=== PATIENT | female | born 1985 | race Caucasian/White ===

== ENCOUNTER 2017-11-19 13:13 | Inpatient (IN) | payer BC ==
[2017-11-19 15:16] VITALS: BMI 29.9
--- NOTE | 2017-11-19 20:54 | HP ---
"Admission [facility] Chief Complaint: Here for rehab. Allergies/Adverse Reactions: Allergies Allergy/AdvReac Type Severity Reaction Status Date / Time No Known Allergies Allergy Verified 11/19/17 15:35 History of Present Illness: Hx Heavy intranasal cocaine use since age 24. Mild marijuana use since age 19. Intermittent alcohol use from age 21 until 1 week ago. Longest period of sobriety is about 2 months. Denies hx of seizures or blackouts. Has a (+) PPD from 2 years ago. Thinks had medicine, as a child, for 6 months. Denies significant PMH. Search Terms: Deneen Rafi, 1985 Search Date: 11/19/2017 08:46:54 PM The Drug Utilization Report below displays all of the controlled substance prescriptions, if any, that your patient has filled in the last twelve months. The information displayed on this report is compiled from pharmacy submissions to the Department, and accurately reflects the information as submitted by the pharmacies. This report was requested by: Shantelle Corral | Reference #: [id number] There are no results for the search terms that you entered. Exam Limitations: No Limitations - Ebola screening Have you traveled outside of the country in the last 21 days: No Have you had contact with anyone from an Ebola affected area: No Have you been sick,other than usual withdrawal symptoms: No Do you have a fever: No - Review of Systems Constitutional: Diaphoresis, Changes in sleep (Difficulty falling asleep) EENT: reports: Blurred Vision (Wears contact lenses) Respiratory: reports: No Symptoms reported Cardiac: reports: No Symptoms Reported GI: reports: No Symptoms Reported : reports: No Symptoms Reported Musculoskeletal: reports: No Symptoms Reported Integumentary: reports: Bruising (arms and legs w/ scattered bruising), Lesions (scrape on (L) hand w/ a scab.) Neuro: reports: Tremors (mild tremors) Endocrine: reports: No Symptoms Reported Hematology: reports: No Symptoms Reported Psychiatric: reports: Judgement Intact, Mood/Affect Appropiate, Orientated x3, Anxious Patient History - PPD History Previous Implant?: Yes Documented Results: Positive w/o proof Implanted On Prior R Admission?: No PPD to be Administered?: No - Reproductive History Patient is a Female of Child Bearing Age (11 -55 yrs old): Yes Last Menstrual Period: 11/01/17 Patient : No - Smoking Cessation Smoking history: Current some day smoker Have you smoked in the past 12 months: Yes Aproximately how many cigarettes per day: 2 Hx Chewing Tobacco Use: No Initiated information on smoking cessation: Yes 'Breaking Loose' booklet given: 11/19/17 - Substance & Tx. History Hx Alcohol Use: Yes Hx Substance Use: Yes Substance Use Type: Cocaine, Marijuana Hx Substance Use Treatment: No - Substances Abused Cocaine Route: Inhalation Frequency: Daily Amount used: $200-500 Age of first use: 24 Date of Last Use: 11/19/17 (3 am) Marijuana/Hashish Route: Smoking Frequency: 1-2 times per week Amount used: 1 joint Age of first use: 19 Date of Last Use: 11/17/17 Alcohol Route: Oral Frequency: 1-2 times per week Amount used: 4-5 shots Age of first use: 21 Date of Last Use: 11/05/17 Admission Physical Exam [facility] - Vital Signs Vital Signs: Vital Signs - 24 hr 11/19/17 11/19/17 15:10 15:12 Temperature 97.4 F L 97.4 F L Pulse Rate 68 73 Respiratory 20 20 Rate Blood Pressure 149/63 124/78 - Physical General Appearance: Yes: No Apparent Distress, Appropriately Dressed, Anxious HEENTM: Yes: EOMI, Hearing grossly Normal, FELIPE Respiratory: Yes: Chest Non-Tender, Lungs Clear, Normal Breath Sounds Neck: Yes: No masses,lesions,Nodules, Supple Breast: Yes: Breast Exam Deferred Cardiology: Yes: Regular Rhythm, Regular Rate, S1, S2 Abdominal: Yes: Normal Bowel Sounds, Non Tender, Soft Genitourinary: Yes: Within Normal Limits Back: Yes: Normal Inspection Musculoskeletal: Yes: full range of Motion, Gait Steady Extremities: Yes: Normal Capillary Refill, Normal Range of Motion, Non-Tender Neurological: Yes: b2b sales representative II-XII NML intact, Fully Oriented, Alert, Motor Strength 5/5, Normal Mood/Affect Integumentary: Yes: Normal Color, Dry, Warm, Other (Scattered bruising(mitzy/and blue) on upper (L) arm. Superficial 6 mm abrasion/scratch (L) hand w/ surrounding erythema. No drainage.) Lymphatic: Yes: Within Normal Limits - Diagnostic (1) Alcohol dependence in remission Current Visit: Yes Status: Acute (2) Cannabis dependence, uncomplicated Current Visit: Yes Status: Chronic (3) Cocaine dependence, uncomplicated Current Visit: Yes Status: Chronic (4) Abrasion hand Current Visit: Yes Status: Acute Qualifiers: Encounter type: subsequent encounter Laterality: left Qualified Code(s): S60.512D - Abrasion of left hand, subsequent encounter Cleared for Admission S - Detox or Rehab Claeared for Rehab Admission: Yes [facility] Breath Alcohol Content Breath Alcohol Content: 0 Urine Pregancy Test - Result Urine Test Results: Negative- NO Line Present Urine Drug Screen - Results Drug Screen Negative: No Urine Drug Screen Results: ARLYN-Cocaine, MTD-Methadone, TCA-Tricyclic Antidepress Inpatient Rehab Admission - Initial Determination Are CD services needed?: Yes Free of communicable disease: Yes Not in need of hospitalization: Yes - Rehab Admission Criteria Previous failed treatment: Yes Poor recovery environment: Yes Comorbidities: No Lacks judgement: No Patient is meeting Inpatient Rehab admission criteria:: Yes"
[2017-11-19] MEDS ORDERED: LOPERAMIDE HCL 2 MG CAPSULE PO PRN (21:22)
[2017-11-19] MEDS ORDERED: P-EPHED 60MG/TRIPROLIDI 2.5MG TABLET PO PRN (21:22)
[2017-11-19] MEDS ORDERED: MAG HYDROX/AL HYDROX/SIMETH 30 ML UNIT-DOSE CUP PO PRN (21:22)
[2017-11-19] MEDS ORDERED: IBUPROFEN 400 MG TABLET (FP) PO PRN (21:22)
[2017-11-19] MEDS ORDERED: ACETAMINOPHEN 325 MG TABLET (FP) PO PRN (21:22)
[2017-11-19] MEDS ORDERED: MENTHOL/PHENOL 1 EACH UD MM PRN (21:22)
[2017-11-19] MEDS ORDERED: MAGNESIUM CITRATE 300 ML BOTTLE PO PRN (21:22)
[2017-11-19] MEDS ORDERED: guaiFENesin/D-METHORPHAN HB 10 ML UNIT-DOSE CUPS PO PRN (21:22)
[2017-11-19] MEDS ORDERED: MAGNESIUM HYDROX 2400MG/30ML ORAL SUSPENSION 30 ML CUP PO PRN (21:22)
[2017-11-19] MEDS: hydrOXYzine PAMOATE 50 MG CAPSULE (FP) PO PRN (22:41)
[2017-11-19] MEDS: MELATONIN 5 MG TABLETS PO PRN (22:41)
[2017-11-19] MEDS: THIAMINE HCL 100 MG TABLET (FP) PO SCH (22:41)
[2017-11-19 23:32] LABS: URINE APPEARANCE TURBID; URINE BILIRUBIN NEGATIVE (<2.0 mg/dL); URINE COLOR YELLOW; URINE GLUCOSE (UA) NEGATIVE (NEGATIVE); URINE KETONE NEGATIVE (NEGATIVE); URINE LEUK ESTERASE NEGATIVE (NEGATIVE); URINE NITRITE NEGATIVE (NEGATIVE); URINE PROTEIN NEGATIVE (NEGATIVE); URINE UROBILINOGEN NEGATIVE mg/dL (0.2-1.0)
[2017-11-20] MEDS: PRENATAL VITAMINS W/ FOLIC ACID TABLET (FP) PO SCH (09:18)
[2017-11-20] MEDS: NICOTINE POLACRILEX 2 MG GUM BC PRN (09:18)
[2017-11-20 11:21] LABS: HEMATOCRIT 42.3 % (32.4-45.2); HEMOGLOBIN 13.7 GM/dL (10.7-15.3); MCH 26.7 pg (25.7-33.7); MCHC 32.4 g/dl (32.0-36.0); MEAN CELL VOLUME 82.5 fl (80-96); PLATELET COUNT 233 K/MM3 (134-434); RBC 5.13 M/mm3 (3.60-5.2); RDW 15.6 % (11.6-15.6); WHITE BLOOD COUNT 7.4 K/mm3 (4.0-10.0)
[2017-11-20 11:42] LABS: ALBUMIN 3.5 g/dl (3.4-5.0); ANION GAP 8 MMOL/L (8-16); BLOOD UREA NITROGEN 10 mg/dL (7-18); CALCIUM 8.8 mg/dL (8.5-10.1); CHLORIDE 108 mmol/L (98-107); CO2 26 mmol/L (21-32); CREATININE 0.8 mg/dL (0.55-1.02); GLUCOSE,RANDOM 60 mg/dL (74-106); POTASSIUM 4.2 mmol/L (3.5-5.1); SGOT/AST 14 U/L (15-37); SGPT/ALT 30 U/L (12-78); SODIUM 142 mmol/L (136-145)
[2017-11-20 11:44] LABS: ALK PHOS 55 U/L (45-117); BILIRUBIN,TOTAL 0.5 mg/dL (0.2-1.0); TOT PROT 6.7 g/dl (6.4-8.2)
[2017-11-20] MEDS: hydrOXYzine PAMOATE 50 MG CAPSULE (FP) PO PRN (21:37)
[2017-11-20] MEDS: THIAMINE HCL 100 MG TABLET (FP) PO SCH (21:37)
[2017-11-20] MEDS: MELATONIN 5 MG TABLETS PO PRN (21:38)
[2017-11-21] MEDS: PRENATAL VITAMINS W/ FOLIC ACID TABLET (FP) PO SCH (09:32)
[2017-11-21] MEDS: NICOTINE POLACRILEX 2 MG GUM BC PRN (09:32)
[2017-11-21] MEDS: THIAMINE HCL 100 MG TABLET (FP) PO SCH (21:14)
[2017-11-21] MEDS: hydrOXYzine PAMOATE 50 MG CAPSULE (FP) PO PRN (21:15)
[2017-11-22] MEDS: PRENATAL VITAMINS W/ FOLIC ACID TABLET (FP) PO SCH (09:32)
--- NOTE | 2017-11-22 14:21 | EKG ---
Test Reason : Blood Pressure : / mmHG Vent. Rate : 070 BPM Atrial Rate : 070 BPM P-R Int : 154 ms QRS Dur : 088 ms QT Int : 418 ms P-R-T Axes : 064 077 073 degrees QTc Int : 451 ms NORMAL SINUS RHYTHM POSSIBLE LEFT ATRIAL ENLARGEMENT BORDERLINE ECG NO PREVIOUS ECGS AVAILABLE Confirmed by YANET MENDOZA MD ([id number]) on 11/22/2017 2:21:30 PM Referred By: Melida Gómez Confirmed By:YANET MENDOZA MD
[2017-11-22] MEDS: hydrOXYzine PAMOATE 50 MG CAPSULE (FP) PO PRN (18:59)
[2017-11-22] MEDS: NICOTINE POLACRILEX 2 MG GUM BC PRN (19:00)
[2017-11-22] MEDS: THIAMINE HCL 100 MG TABLET (FP) PO SCH (21:30)
[2017-11-22] MEDS: MELATONIN 5 MG TABLETS PO PRN (21:30)
[2017-11-23] MEDS: PRENATAL VITAMINS W/ FOLIC ACID TABLET (FP) PO SCH (09:43)
[2017-11-23] MEDS: hydrOXYzine PAMOATE 50 MG CAPSULE (FP) PO PRN ×3 (09:44→23:48)
[2017-11-23] MEDS: NICOTINE POLACRILEX 2 MG GUM BC PRN (09:44)
--- NOTE | 2017-11-23 13:18 | PN ---
[facility] Progress Note Note: Vital Signs Temperature 98.0 F 11/23/17 06:45 Pulse Rate 66 11/23/17 06:45 Respiratory Rate 18 11/23/17 06:45 Blood Pressure 116/76 11/23/17 06:45 O2 Sat by Pulse Oximetry (%) Laboratory Last Values WBC 7.4 K/mm3 (4.0-10.0) 11/20/17 09:30 RBC 5.13 M/mm3 (3.60-5.2) 11/20/17 09:30 Hgb 13.7 GM/dL (10.7-15.3) 11/20/17 09:30 Hct 42.3 % (32.4-45.2) 11/20/17 09:30 MCV 82.5 fl (80-96) 11/20/17 09:30 MCH 26.7 pg (25.7-33.7) 11/20/17 09:30 MCHC 32.4 g/dl (32.0-36.0) 11/20/17 09:30 RDW 15.6 % (11.6-15.6) 11/20/17 09:30 Plt Count 233 K/MM3 (134-434) 11/20/17 09:30 MPV 9.0 fl (7.5-11.1) 11/20/17 09:30 Sodium 142 mmol/L (136-145) 11/20/17 09:30 Potassium 4.2 mmol/L (3.5-5.1) 11/20/17 09:30 Chloride 108 mmol/L (98-107) H 11/20/17 09:30 Carbon Dioxide 26 mmol/L (21-32) 11/20/17 09:30 Anion Gap 8 MMOL/L (8-16) 11/20/17 09:30 BUN 10 mg/dL (7-18) 11/20/17 09:30 Creatinine 0.8 mg/dL (0.55-1.02) 11/20/17 09:30 Creat Clearance w eGFR > 60 (>60) 11/20/17 09:30 Random Glucose 60 mg/dL (74-106) L 11/20/17 09:30 Calcium 8.8 mg/dL (8.5-10.1) 11/20/17 09:30 Total Bilirubin 0.5 mg/dL (0.2-1.0) 11/20/17 09:30 AST 14 U/L (15-37) L 11/20/17 09:30 ALT 30 U/L (12-78) 11/20/17 09:30 Alkaline Phosphatase 55 U/L (45-117) 11/20/17 09:30 Total Protein 6.7 g/dl (6.4-8.2) 11/20/17 09:30 Albumin 3.5 g/dl (3.4-5.0) 11/20/17 09:30 Urine Color Yellow 11/19/17 22:13 Urine Appearance Turbid 11/19/17 22:13 Urine pH 5.0 (5.0-8.0) 11/19/17 22:13 Ur Specific [place] 1.028 (1.001-1.035) 11/19/17 22:13 Urine Protein Negative (NEGATIVE) 11/19/17 22:13 Urine Glucose (UA) Negative (NEGATIVE) 11/19/17 22:13 Urine Ketones Negative (NEGATIVE) 11/19/17 22:13 Urine Blood Negative (NEGATIVE) 11/19/17 22:13 Urine Nitrite Negative (NEGATIVE) 11/19/17 22:13 Urine Bilirubin Negative (<2.0 mg/dL) 11/19/17 22:13 Urine Urobilinogen Negative mg/dL (0.2-1.0) 11/19/17 22:13 Ur Leukocyte Esterase Negative (NEGATIVE) 11/19/17 22:13 RPR Titer Nonreactive (NONREACTIVE) 11/20/17 09:30 Hep C Ab Diagnostic <0.1 s/co ratio (0.0-0.9) 11/20/17 09:30 Hepatitis C RNA No Result Required. 11/20/17 09:30 HCV RNA PCR w/Genot Rflx No Result Required. 11/20/17 09:30 Liver Fibrosis Interp (.) 11/20/17 09:30 chest x-ray reviewed no acute pathology or pulmonary disease labs reviewed continue to monitor
--- NOTE | 2017-11-23 18:24 | HP ---
Psychiatrist Admission - Data Date of interview: 11/23/17 Admission source: [facility] Identifying data: Patient is a 31 year old single female, without children, domiciled, and employed. This is patient's first admission to rehab at [facility]. Pt. admitted to for cocaine dependence. Medical History: denies. Psychiatric History: Patient denies h/o psychiatric hospitalization, outpatient care, and suicide attempt.Pt. presents as sad and tearful secondary to her cocaine dependence. Physical/Sexual Abuse/Trauma History: denies. Vital Signs: Vital Signs - 24 hr 11/23/17 11/23/17 11/23/17 00:30 03:30 06:45 Temperature 98.0 F Pulse Rate 66 Respiratory 16 16 18 Rate Blood Pressure 116/76 Allergies/Adverse Reactions: Allergies Allergy/AdvReac Type Severity Reaction Status Date / Time No Known Allergies Allergy Verified 11/19/17 15:35 Date of last physical exam: 11/19/17 Concur with the findings of this exam: Yes - Substance Abuse/Tx History Hx Alcohol Use: Yes (varies) Hx Substance Use: Yes (varies) Substance Use Type: Cocaine Hx Substance Use Treatment: No Mental Status Exam - Mental Status Exam Alert and Oriented to: Time, Place, Person Cognitive Function: Good Patient Appearance: Well Groomed Mood: Sad, Anxious Affect: Mood Congruent Patient Behavior: Crying, Talkative, Appropriate Speech Pattern: Appropriate Voice Loudness: Normal Thought Process: Intact, Goal Oriented Thought Disorder: Not Present Hallucinations: Denies Suicidal Ideation: Denies Homicidal Ideation: Denies Insight/Judgement: Poor Sleep: Fair Appetite: Fair Muscle strength/Tone: Normal Gait/Station: Normal Psychiatric Findings - Problem List ([place] 1, 2,3) (1) Alcohol dependence in remission Status: Acute (2) Cannabis dependence, uncomplicated Status: Chronic (3) Cocaine dependence, uncomplicated Status: Chronic (4) Substance induced mood disorder Status: Acute - Initial Treatment Plan Initial Treatment Plan: Psychoeducation provided. Detoxification in progress. Observation.
[2017-11-23] MEDS: MELATONIN 5 MG TABLETS PO PRN (21:33)
[2017-11-23] MEDS: THIAMINE HCL 100 MG TABLET (FP) PO SCH (21:33)
[2017-11-24] MEDS: hydrOXYzine PAMOATE 50 MG CAPSULE (FP) PO PRN ×3 (06:30→18:24)
[2017-11-24] MEDS: PRENATAL VITAMINS W/ FOLIC ACID TABLET (FP) PO SCH (09:15)
[2017-11-24] MEDS: ACAMPROSATE CALCIUM 333 MG TABLET.DR PO SCH ×2 (14:40→21:20)
[2017-11-24] MEDS ORDERED: COLLOIDAL OATMEAL 1 BAR EACH TP PRN (18:43)
[2017-11-24] MEDS: THIAMINE HCL 100 MG TABLET (FP) PO SCH (21:20)
[2017-11-24] MEDS: MELATONIN 5 MG TABLETS PO PRN (21:21)
[2017-11-25] MEDS: ACAMPROSATE CALCIUM 333 MG TABLET.DR PO SCH (06:18)
[2017-11-25] MEDS: hydrOXYzine PAMOATE 50 MG CAPSULE (FP) PO PRN (06:18)
[2017-11-25 06:37] VITALS: BP 119/85; PULSE 78; TEMP 98.2
== END 2017-11-25 07:32 | disposition home or self-care (01) | DRG 895 ==
LOC: YASAS 13:13 → Y3E 17:58
PROVIDERS: ADMIT Psychiatry & Neurology Psychiatry; ATTEND Psychiatry & Neurology Psychiatry
PROC: HZ42ZZZ Group Counseling for Substance Abuse Treatment, Cognitive-Behavioral (ICD-10-PCS; principal; 2017-11-20)
DX: F14.20 Cocaine dependence, uncomplicated (principal); F12.20 Cannabis dependence, uncomplicated; F10.21 Alcohol dependence, in remission; F19.24 Other psychoactive substance dependence with psychoactive substance-induced mood disorder; S60.512D Abrasion of left hand, subsequent encounter; X58.XXXD Exposure to other specified factors, subsequent encounter
CPT/HCPCS: 36415; 71046-TC-FY; 80053; 81003; 85027; 86593; 86803; 93005; 93010